=== PATIENT | male | born 1935 | race Caucasian/White ===

== ENCOUNTER → 2019-01-18 12:43 | Outpatient (BNVA) | payer MEDICARE, OTHER, SELFPAY | PROVIDERS: PCP Family Medicine; Referring Provider Family Medicine; Visit Provider Urology | DX: C61 Malignant neoplasm of prostate (principal); Z80.42 Family history of malignant neoplasm of prostate; I10 Essential (primary) hypertension | CPT/HCPCS: 99204 ==

== ENCOUNTER 2019-01-18 14:04 | Outpatient (CLI) | payer MEDICARE, OTHER, SELFPAY ==
[2019-01-19 15:39] LABS: PSA, Diagnostic 0.5 ng/mL (0.0-6.5)
== END 2019-01-18 14:24 ==
PROVIDERS: PCP Family Medicine; Visit Provider Urology
DX: C61 Malignant neoplasm of prostate (principal); Z80.42 Family history of malignant neoplasm of prostate; I10 Essential (primary) hypertension
CPT/HCPCS: 36415; 99204; 84153

== ENCOUNTER → 2020-02-17 11:17 | Outpatient (BNVA) | payer MEDICARE, OTHER, SELFPAY | PROVIDERS: PCP Family Medicine; Referring Provider Family Medicine; Visit Provider Urology | DX: C61 Malignant neoplasm of prostate (principal); I10 Essential (primary) hypertension | CPT/HCPCS: 99213 ==

== ENCOUNTER → 2020-08-21 10:16 | Outpatient (BNVA) | payer MEDICARE, OTHER, SELFPAY | PROVIDERS: PCP Family Medicine; Referring Provider Family Medicine; Visit Provider Urology | DX: C61 Malignant neoplasm of prostate (principal) | CPT/HCPCS: 99213; 99443 ==

== ENCOUNTER → 2021-02-19 10:17 | Outpatient (BNVA) | payer MEDICARE, OTHER, SELFPAY | PROVIDERS: PCP Family Medicine; Referring Provider Family Medicine; Visit Provider Urology | DX: C61 Malignant neoplasm of prostate (principal); R31.0 Gross hematuria | CPT/HCPCS: 36415; 81003; 99214 ==

== ENCOUNTER 2021-02-19 16:34 | Outpatient (REF) | payer MEDICARE, OTHER, SELFPAY ==
[2021-02-19 14:52] LABS: CREATININE 1.3 mg/dL (0.70-1.30); Estimated GFR 52.72 (mL/min/1.73m2)
[2021-02-19 22:54] LABS: PSA, Diagnostic 0.5 ng/mL (0.0-6.5)
== END 2021-02-19 16:35 | disposition home or self-care (01) ==
LOC: LBN 16:34
PROVIDERS: PCP Family Medicine; Visit Provider Urology
DX: R31.0 Gross hematuria (principal); C61 Malignant neoplasm of prostate
CPT/HCPCS: 82565; 84153

== ENCOUNTER → 2021-03-21 07:37 | Outpatient (BNVA) | payer MEDICARE, OTHER, SELFPAY | PROVIDERS: PCP Family Medicine; Referring Provider Family Medicine; Visit Provider Urology | DX: C61 Malignant neoplasm of prostate (principal); R31.0 Gross hematuria; Z90.79 Acquired absence of other genital organ(s) | CPT/HCPCS: 99442 ==

== ENCOUNTER 2021-04-12 01:07 | Outpatient (CLI) | payer MEDICARE, OTHER, SELFPAY ==
--- NOTE | 2021-04-12 | DI.MRI_ITS ---
Exam(s) MR ABDOMEN WO/W EXAM: MR ABDOMEN WO/W CLINICAL HISTORY: HEPATOMEGALY, F/U ABNL IMAGING,INDETERMINATE LIVER MASS,R93.5,R16.0 TECHNIQUE: Multiplanar multisequence MRA of the Abdomen was performed. CONTRAST MATERIAL: IV Contrast: 15 mL of Dotarem contrast administered. COMPARISON: CT CT UROGRAM from 03/18/2021 FINDINGS: Liver: There are few nonenhancing fluid signal lesions within the liver. The largest measures 6 mm. These are most consistent with cysts. No solid hepatic lesions or enhancing masses are seen. Pancreas: Unremarkable. Gallbladder and Bile Ducts: Unremarkable. Adrenals: Unremarkable. Kidneys: No solid renal mass or enhancing lesion. No evidence of obstruction. Spleen: Unremarkable. Bowel: There is diverticulosis seen in the colon but no evidence of acute diverticulitis. Aorta: Evidence of an aneurysm. Soft Tissues: Unremarkable. Bone: Degenerative changes are seen in the spine. Lymph Nodes: Unremarkable. Peritoneum: There is again seen a 1.2 x 2.2 cm well-circumscribed lesion along the posterior right ab domen. Review of the CT scan from 03/18/2021 shows this appears to be separate from the liver. It is fluid signal on all pulse sequences. There is thin peripheral enhancement. No internal enhancement is seen. No other intraperitoneal lesions are identified. IMPRESSION: 1. 1.2 x 2.2 cm well-circumscribed fluid signal lesion in the posterior right abdomen. This correspo nds to the finding seen on the CT scan. It appears to be distinct from the liver based on the CT sca n. The finding is nonspecific. Differential considerations include, but are not limited to, resolvi ng hematoma, abscess, metastasis. A short-term follow-up CT scan of the abdomen is recommended for f urther evaluation. 2. No evidence of a solid hepatic mass or other findings in the MRI of the abdomen to suggest metasta tic disease. 3. Colonic diverticulosis, but no evidence of acute diverticulitis. 4. Small hepatic cysts. DATA REPOSITORY:
[2021-04-12 09:48] LABS: CREATININE 1.3 mg/dL (0.70-1.30); Estimated GFR 52.59 (mL/min/1.73m2)
[2021-04-12] MEDS: Gadoterate meglumine 20 ML VIAL 15 ML IVP (10:01)
== END 2021-04-12 01:27 ==
PROVIDERS: PCP Family Medicine; Visit Provider Family Medicine
DX: R93.5 Abnormal findings on diagnostic imaging of other abdominal regions, including retroperitoneum (principal); R16.0 Hepatomegaly, not elsewhere classified; K76.89 Other specified diseases of liver; K57.30 Diverticulosis of large intestine without perforation or abscess without bleeding; Z01.812 Encounter for preprocedural laboratory examination; I10 Essential (primary) hypertension
CPT/HCPCS: 74183; 82565

== ENCOUNTER 2021-06-25 04:53 | Outpatient (CLI) | payer MEDICARE, OTHER, SELFPAY ==
[2021-06-25 13:29] LABS: Source Nasal/Nares
[2021-06-25 15:38] LABS: COVID-19 PCR Negative (Negative)
== END 2021-06-25 04:54 | disposition home or self-care (01) ==
LOC: LBO 04:53
PROVIDERS: PCP Family Medicine; Visit Provider Urology
DX: Z20.822 Contact with and (suspected) exposure to COVID-19 (principal); Z01.818 Encounter for other preprocedural examination
CPT/HCPCS: 87635; U0005

== ENCOUNTER 2021-06-27 06:09 | Day surgery (SDC) | payer MEDICARE, OTHER, SELFPAY ==
[2021-06-27 06:34] VITALS: BP 175/111; PULSE 65; RESP 16; TEMP 36.7; O2SAT 98
--- NOTE | 2021-06-27 06:48 | HPE_ITS ---
Date of service: 06/27/21 Time of Service: 06:48 Assessment and Plan Assessment and plan (1) Gross hematuria: Status: Acute Assessment and plan: For cystoscopy and possible TURBT should any significant pathology be identified History of Present Illness History of Present Illness Chief Complaint: Gross hematuria Narrative: This is an 86-year-old gentleman who has a history of prostate cancer.? He had undergone radical prostatectomy.? He had high-grade tumor very close to his surgical margins his PSA never reached undetectable levels.? He did not have postop radiation therapy or androgen deprivation.? His PSA has been remaining relatively stable at 0.5 ng/mL.. He has had intermittent episodes of gross painless hematuria.? He does not develop clots in the urine. He is on chronic anticoagulants.?He had a CT urogram done at [facility]. No concerning upper tract pathology was identified. He did have a mass adjacent to the liver that was subsequenttly evaluated with an MRI. He presents now for cystoscopy to evaluate his lower urinary tract. Review of Systems Narrative: No fevers or chills No vision change or dysphasia No diabetes or thyroid dysfunction No shortness of breath, cough or hemoptysis No chest pain or palpitations Hx GERD. No hepatitis, ulcers, jaundice No seizures, strokes or peripheral neuropathy Easy bruising related to anticoagulants. 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 Is able to do yard work for 3-4 hours at a time H/O radical prostatectomy H/O vasectomy History of carotid endarterectomy Social History Smoking/Tobacco Use Status: Former Tobacco Use Quit Date: 03/02/89 Smoking risk assessment performed?: Yes Alcohol Intake: current Alcohol Intake frequency: 0-2 drinks per day Alcohol type: hard liquor Drug use: Never Substance use type: does not use Do you feel safe at home: Yes Do you feel safe in your relationship?: Yes Meds Allergies and Home Medications Allergies Allergy/AdvReac Type Severity Reaction Status Date / Time No Known Allergies Allergy Unverified 06/27/21 06:26 Home Medications Medication Instructions Recorded Confirmed Type aspirin 81 mg chewable tablet 81 mg PO DAILY tab-cap 01/05/13 06/25/21 History (Aspirin Low-Strength) apixaban 5 mg tablet (Eliquis) 5 mg PO BID 09/20/18 06/25/21 History atorvastatin 20 mg tablet 20 mg PO DAILY 09/20/18 06/27/21 History chlorthalidone 25 mg tablet 25 mg PO DAILY 09/20/18 06/27/21 History lisinopril 20 mg tablet 20 mg PO BID 09/20/18 06/27/21 History omeprazole 10 mg capsule,delayed 40 mg PO DAILY cap 09/20/18 06/27/21 History release omega-3 fatty acids 1,000 mg 2,000 mg PO DAILY cap 12/08/18 06/25/21 History capsule (Fish Oil Concentrate) metoprolol succinate 50 mg 50 mg PO DAILY 02/17/20 06/27/21 History tablet,extended release 24 hr fluorouracil 5 % topical cream 1 applic TOPICAL BID 06/27/21 06/27/21 History Exam Const General: cooperative and comfortable Neck Neck: supple Resp Effort & Inspection: normal respiratory effort Auscultation: clear to auscultation bilaterally Cardio Rate: regular rate Rhythm: abnormal rhythm GI Palpation: soft and no masses Neuro General: patient alert, patient awake and patient oriented x3
[2021-06-27 06:55] VITALS: BP 165/111; PULSE 78; RESP 16; O2SAT 98
--- NOTE | 2021-06-27 06:58 | W.ANESPRE ---
General Info Date of Service Date Performed: 06/27/21 Height: 5 ft 8 in Weight: 75.5 kg Body Mass Index (BMI): 25.2 Surgical Procedure: Operation Date: 06/27/21 07:40 Proposed Procedure Side Surgeon p Cysto w/ Poss.Transurethral Resection Bladder Tumor Mark Floyd MD Meds Allergies and Home Medications Allergies Allergy/AdvReac Type Severity Reaction Status Date / Time No Known Allergies Allergy Unverified 06/27/21 06:26 Home Medication Medication Instructions Recorded aspirin 81 mg chewable tablet 81 mg PO DAILY tab-cap 01/05/13 (Aspirin Low-Strength) apixaban 5 mg tablet (Eliquis) 5 mg PO BID 09/20/18 atorvastatin 20 mg tablet 20 mg PO DAILY 09/20/18 chlorthalidone 25 mg tablet 25 mg PO DAILY 09/20/18 lisinopril 20 mg tablet 20 mg PO BID 09/20/18 omeprazole 10 mg capsule,delayed 40 mg PO DAILY cap 09/20/18 release omega-3 fatty acids 1,000 mg 2,000 mg PO DAILY cap 12/08/18 capsule (Fish Oil Concentrate) metoprolol succinate 50 mg 50 mg PO DAILY 02/17/20 tablet,extended release 24 hr fluorouracil 5 % topical cream 1 applic TOPICAL BID 06/27/21 Current Visit Medications: Current Medications Generic Name Dose Route Start Last Admin Trade Name Freq PRN Reason Stop Dose Admin Ringer's Solution 1,000 mls @ 80 mls/hr 06/27/21 06:00 IV 07/26/21 23:59 INFUSION BEATRICE Cefazolin Sodium/Dextrose 2 gm in 50 mls @ 100 mls/hr 06/27/21 06:00 Ancef Duplex IVPB 06/27/21 16:00 PREOP BEATRICE IV Miscellaneous Supplies 1 each 06/27/21 06:00 Iv Access IV 07/26/21 23:59 DIRECTED BEATRICE Sodium Chloride 0 ml 06/27/21 06:00 Normal Saline Flush 10 Ml Syr IV 07/26/21 23:59 PRN PRN Sodium Chloride 0 ml 06/27/21 06:00 Normal Saline 10 Ml Vial IJ 07/26/21 23:59 DIRECTED PRN Sterile Water 0 ml 06/27/21 06:00 Water,Injection,Sterile 10 Ml Vial IJ 07/26/21 23:59 DIRECTED PRN PFSH Active Problems Active Problems: Problem Status Onset Code Malignant tumor of prostate C61 Gross hematuria R31.0 Medical History Medical History Atherosclerosis of coronary artery without angina pectoris Atrial fibrillation Cardiac arrhythmia Coronary disease Gastroesophageal reflux HTN (hypertension) Hyperlipidemia Macular degeneration Raynauds disease Surgical History Surgical History (Updated 06/27/21 @ 06:26 by Zaida Méndez) H/O angioplasty 25 years ago-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 Is able to do yard work for 3-4 hours at a time H/O radical prostatectomy H/O vasectomy History of carotid endarterectomy Tobacco Smoking/Tobacco Use Status: Former Tobacco Use Alcohol Alcohol Intake: current Alcohol intake frequency: 0-2 drinks per day Alcohol type: hard liquor Substance Use Substance use: Never Substance use type: does not use Vital Signs and Lab Results Vital Signs Most Recent Vital Signs in EMR: Most Recent Vital Signs Temp Pulse Resp BP Pulse Ox 36.7 C 65 16 175/111 H 98 06/27/21 06:34 06/27/21 06:34 06/27/21 06:34 06/27/21 06:34 06/27/21 06:34 Lab Results Blood Type / Crossmatch: No Data to Display Complete Blood Count: No Data to Display Complete Metabolic Panel: No Data to Display Liver Function Panel: No Data to Display Coagulation Panel: No Data to Display Cardiac Panel: No Data to Display Arterial Blood Gas: No Data to Display Venous Blood Gas: No Data to Display Pancreas Panel: No Data to Display Thyroid Panel: No Data to Display Infectious Disease: Coronavirus (COVID-19)(PCR) Negative (Negative) 06/25/21 10:09 06/25/21 Coronavirus 2019 Source Nasal/Nares 06/25/21 10:09 06/25/21 Blood Cultures: No Data to Display Toxicology Panel: No Data to Display Anesthesia Assessment and Plan Anesthesia History Personal History: No History of Anesthesia Complications Family History: No Family History of Anesthesia Complications Exercise Tolerance Exercise Tolerance: Metabolic Equivalents>4 Pertinent Negatives Pertinent Negatives: No Symptoms of GERD Cardiac & Pulmonary Exam Cardiac Exam: Normal S1/S2 Heart Sounds Pulmonary Exam: Clear Bilateral Breath Sounds Implantable Cardiac Device Does patient have a Pacemaker or an ICD?: No Airway Exam Known Difficult Airway: No Mallampati Class: 1 Mouth Opening: Normal (> 3cm) Thyromental Distance: Greater than 3 cm Neck Range of Motion: Full ROM Neck Circumference: Normal Teeth Condition: Edentulous ASA Classification ASA Score: ASA 3 Emergency Case?: No NPO Status NPO Status: NPO Clears >2 hours, Solids >8 hours Anesthesia Plan Resuscitation Status: Full Code Anesthesia Technique: General Anesthesia Airway Planned: Natural Airway Monitors Used: Standard Monitors
[2021-06-27 07:00] VITALS: BMI 25.2
[2021-06-27] MEDS: Lactated Ringers 1,000 ML 80 ML IV (07:10)
[2021-06-27] MEDS: ceFAZolin 2 GM/50 ML BAG IVPB (07:27)
[2021-06-27] MEDS: Lidocaine 2% Jelly 6 ML SYR (07:41)
--- NOTE | 2021-06-27 08:05 | BLADDER_PTH ---
PATIENT: Noah Holbrook LOC: DA U#:[id number] AGE/SX: 86/M ROOM: RE06/27/[address]: Mark Floyd MD : [id number] BED: DIS: 06/27/2021 SPEC #: [id number] RECD: 06/27/21 12:44 STATUS: ZAYDA REQ #: [id number] CHIRAG: 06/27/21 08:[address]: Mark Floyd DEPT: Surgical Specimen RECD BY: Lorena Thompson ENTERED: 06/27/21 12:44 SP TYPE: Bladder OTHR DR: Orion Perez Tissues: 1 - BLADDER CURRETTINGS Procedures: GROSS AND MICRO LEVEL 5 Comments: [id number]
--- NOTE | 2021-06-27 08:09 | W.PM.DSUDISC ---
Discharge Plan Disposition Patient Disposition: HOME Condition: Stable Discharge Details Reason For Visit: cystoscopy Attending Provider: Mark Floyd Primary Care Provider: Orion Perez Home Meds and New Rx's Prescriptions: No Action metoprolol succinate 50 mg tablet extended release 24 hr 50 mg PO DAILY 0RF Label Comments: take with metoprolol succinate 25mg ER tab for total of 75 mg daily. atorvastatin 20 mg tablet 20 mg PO DAILY 0RF chlorthalidone 25 mg tablet 25 mg PO DAILY 0RF Eliquis 5 mg tablet 5 mg PO BID 0RF lisinopril 20 mg tablet 20 mg PO BID 0RF omeprazole 10 mg capsule,delayed release(DR/EC) 40 mg PO DAILY 0RF omega-3 fatty acids [Fish Oil Concentrate] 1,000 mg capsule 2,000 mg PO DAILY 0RF aspirin [Aspirin Low-Strength] 81 MG tablet,chewable 81 mg PO DAILY 0RF fluorouracil 5 % cream 1 applic TOPICAL BID 0RF Label Comments: APPLY A SUFFICIENT AMOUNT TO COVER THE LESIONS TO THE AFFECTED AREA TWICE DAILY Discharge Instructions Additional Instructions: hold Eliquis until catheter is removed cunningham to leg bag followup 1 week for catheter removal and 2 weeks for pathology results Activity:: no straining or lifting over 20 pounds Shower/Bathe:: 24 hours Diet:: As Tolerated Discharge Orders Discharge Orders: Discharge Order (Routine); Ordered 06/27/21 Ordered By: Mark Floyd DS: Diagnosis Discharge Diagnosis (1) Gross hematuria: Status: Acute
--- NOTE | 2021-06-27 08:14 | ROE_ITS ---
Date of service: 06/27/21 Time of Service: 08:14 Operative Note Operative Note DATE OF PROCEDURE: 06/27/21 PRE-OP DIAGNOSIS: Gross Hematuria POST-OP DIAGNOSIS: same Bladder mass with pathology pending PROCEDURE: cystoscopy with TUR Bladder Tumor (@ 3 cm) SURGEON: Mark Floyd ANESTHESIA TYPE: General:No Airway Refer to Anesthesia Record ESTIMATED BLOOD LOSS: 50 PATHOLOGY: other (bladder mass) COMPLICATIONS: None Patient was transported to: same day Patient's condition: stable Implants: 18 [place] cunningham catheter with 10 cc sterile water in balloon Indications: Is an 86-year-old gentleman who has a history of prostate cancer. He had a radical prostatectomy previously. His PSA never reached undetectable levels, but the PSA did not rise either. He has not had radiation therapy or androgen deprivation. He is chronically anticoagulated with Eliquis. He has had intermittent episodes of gross painless hematuria without clots. A CT urogram showed no specific upper tract abnormalities. He presents for cystoscopy to complete his hematuria work-up. Findings: mass on posterior bladder wall - combination of papillary and nodular components No pelvic fixation on bimanual examination Procedure Description: The patient was brought to the operating room on 06/27/2021. After successful induction of general anesthesia without intubation, he was placed in the dorsal lithotomy position. His genitalia was prepped and draped. He was given a dose of preoperative IV antibiotics. 2% Xylocaine jelly was instilled into the urethra to act as a local anesthetic. A 22 [place] rigid cystoscope was then passed through the urethra into the bladder. The urethra and bladder were inspected with a 30 degree lens. The pendulous, bulbar and membranous urethra appeared normal with no strictures. The prostatic urethra was absent following his prostatectomy. The bladder neck was entered and the bladder mucosa was inspected. Both ureteral orifices appeared normal in configuration and location. No blood was seen coming from either side. Along the posterior bladder wall, there was a 3 cm mass which had both papillary and nodular components visually. The remainder of the bladder appeared uninvolved. We then removed the cystoscope and inserted a 24 [place] resectoscope sheath. Transurethral resection of the visible tumor was accomplished using an LAFASO resectoscope. All resected tissue was evacuated and sent to pathology for permanent section. The resection site was then cauterized using both a loop and a ball electrode. At the completion of the procedure, hemostasis appeared to be good. Because of the depth of the resection, we elected to place a Cunningham catheter. I chose an 18 [place] Cunningham catheter and passed it through the urethra into the bladder. The catheter balloon was inflated with 10 cc of sterile water and the catheter was hooked to gravity drainage. I did not instill a chemotherapy agent due to the depth of the resection. A bimanual exam shows no fixation of the bladder to the pelvic sidewall. The patient tolerated the procedure well with no complications. He was taken back to the day surgery unit in stable condition.
[2021-06-27 08:20] VITALS: BP 159/96; PULSE 77; RESP 16; TEMP 36.3; O2SAT 95
[2021-06-27] MEDS: traMADol 50 MG TAB PO (08:43)
[2021-06-27] MEDS: Phenazopyridine 200 MG TAB PO (08:43)
[2021-06-27 08:45] VITALS: BP 177/99; PULSE 65; RESP 16; TEMP 36.3; O2SAT 95
[2021-06-27 09:15] VITALS: BP 176/99; PULSE 73; RESP 15; TEMP 36.6; O2SAT 94
--- NOTE | 2021-06-27 09:41 | W.ANESPOSTOP ---
Postoperative Evaluation Date, Time and Location Date Performed: 06/27/21 Time Performed: 09:10 Patient Location: Day Surgery Unit Vital Signs Most Recent Imported Vital Signs: Most Recent Vital Signs Temp Pulse Resp BP Pulse Ox 36.3 C L 65 16 177/99 H 95 06/27/21 08:45 06/27/21 08:45 06/27/21 08:45 06/27/21 08:45 06/27/21 08:45 Pain Score Most Recent Pain Score: Most Recent Pain Score Pain Level 5 06/27/21 08:45 Assessment Mental Status: Awake (Alert & Oriented to Patient Baseline) Airway and Respiratory Function: Patent airway with normal (patient baseline) respiratory exam Cardiovascular Function: Hemodynamically Stable Hydration Status: Adequately Hydrated Nausea & Vomiting: No Nausea or Vomiting Pain: Pain is tolerable per patient Peripheral Nerve Block: Patient did not receive a nerve block Teaching Patient Teaching: Advised to seek followup for the following concerns (See explanation) Concerns: Poorly Controlled Hypertension Postoperative Comments:: Came in hypertensive, was treated in OR with some effect. Advised to followup with PCP for optimization.
== END 2021-06-27 10:40 | disposition home or self-care (01) ==
PROVIDERS: PCP Family Medicine; Visit Provider Urology
PROC: 0TBB8ZZ Excision of Bladder, Via Natural or Artificial Opening Endoscopic (ICD-10-PCS; CPT 52235; principal; 2021-06-27 07:30)
DX: C67.4 Malignant neoplasm of posterior wall of bladder (principal); R31.0 Gross hematuria; Z79.01 Long term (current) use of anticoagulants; I48.91 Unspecified atrial fibrillation; I73.00 Raynaud's syndrome without gangrene; Z85.46 Personal history of malignant neoplasm of prostate
CPT/HCPCS: 52235; 88307; J0360; J0690; J1100; J1885; J2405

== ENCOUNTER → 2021-07-16 14:50 | Outpatient (BNVA) | payer MEDICARE, OTHER, SELFPAY | PROVIDERS: PCP Family Medicine; Referring Provider Family Medicine; Visit Provider Urology | DX: R31.0 Gross hematuria (principal); Z85.46 Personal history of malignant neoplasm of prostate; C67.9 Malignant neoplasm of bladder, unspecified | CPT/HCPCS: 99215 ==

== ENCOUNTER → 2021-09-13 08:15 | Outpatient (BNVA) | payer MEDICARE, OTHER, SELFPAY | PROVIDERS: PCP Family Medicine; Referring Provider Family Medicine; Visit Provider Urology | DX: R39.89 Other symptoms and signs involving the genitourinary system (principal); R33.8 Other retention of urine; C67.9 Malignant neoplasm of bladder, unspecified | CPT/HCPCS: 51798; 99213 ==

== ENCOUNTER 2021-10-14 09:55 | Outpatient (CLI) | payer MEDICARE, OTHER, SELFPAY ==
--- NOTE | 2021-10-14 09:45 | RT.EKG_ITS ---
APPROVED REPORT Exam: Resting ECG Reason for Exam: Afib Patient Location: O HR:60 bpm ECG Measurements Heart Rate 60 AXIS MN [id number] P [id number] QRSd 85 QRS 13 QT 393 T -4 QTc 393 Conclusion Atrial fibrillation...V-rate 55- 68, irreg A-activity Borderline low voltage, extremity leads...all extremity leads <0.6mV
== END 2021-10-14 09:56 | disposition home or self-care (01) ==
LOC: DI.CARD 09:56
PROVIDERS: PCP Family Medicine; Visit Provider Internal Medicine Cardiovascular Disease
DX: I25.10 Atherosclerotic heart disease of native coronary artery without angina pectoris (principal); I48.91 Unspecified atrial fibrillation; R94.31 Abnormal electrocardiogram [ECG] [EKG]
CPT/HCPCS: 93010

== ENCOUNTER → 2021-10-14 10:40 | Outpatient (BNVA) | payer MEDICARE, OTHER, SELFPAY | PROVIDERS: PCP Family Medicine; Referring Provider Family Medicine; Visit Provider Internal Medicine Cardiovascular Disease | DX: I48.21 Permanent atrial fibrillation (principal); Z79.01 Long term (current) use of anticoagulants; Z85.46 Personal history of malignant neoplasm of prostate; C67.9 Malignant neoplasm of bladder, unspecified; I25.10 Atherosclerotic heart disease of native coronary artery without angina pectoris; I10 Essential (primary) hypertension | CPT/HCPCS: 93005; 99203; 99214 ==

== ENCOUNTER → 2022-10-24 09:42 | Outpatient (BNVA) | payer MEDICARE, OTHER, SELFPAY | PROVIDERS: PCP Family Medicine; Referring Provider Family Medicine; Visit Provider Internal Medicine Cardiovascular Disease | DX: I48.91 Unspecified atrial fibrillation (principal); I25.10 Atherosclerotic heart disease of native coronary artery without angina pectoris | CPT/HCPCS: 99214; 99213 ==